=== PATIENT | female | born 1950 | race Caucasian/White ===

== ENCOUNTER 2020-05-09 05:57 | Day surgery (SDC) | payer MEDICARE, BC ==
[~2020-05-09] VITALS: Ht 165.1 cm; Wt 66.2 kg
--- NOTE | ~2020-05-09 | OP ---
PATIENT NAME: KEELY SOFIA MEDICAL RECORD: [id number] :48 LOCATION:D.OPS ADMISSION DATE: SURGEON: PHILLIP MUÑIZ MD DATE OF OPERATION: 05/09/2020 PREOPERATIVE DIAGNOSES: 1. Gallstones. 2. Atrial fibrillation. 3. Congestive heart failure. 4. Hypertension. POSTOPERATIVE DIAGNOSES: 1. Gallstones. 2. Atrial fibrillation. 3. Congestive heart failure. 4. Hypertension. PROCEDURE: Laparoscopic cholecystectomy. SURGEON: Phillip Muñiz MD REPORT OF PROCEDURE: The patient's abdomen was prepped and draped in sterile fashion. A cutdown was made on the superior aspect of the umbilicus, 0 Vicryls were placed in the fascia bilaterally and the fascia was incised with 15-blade. I bluntly entered the peritoneal cavity and placed a 12-mm Temitope port. Under direct visualization, a 5 mm trocar was placed in the epigastrium and 2 more 5-mm trocars were placed in the right subcostal region. The gallbladder was grasped and elevated. It was noted to be a large distended gallbladder with no signs of any acute inflammatory changes. There were multiple small stones present within it. We dissected out the cystic artery and cystic duct and we were able to clip these proximally and distally and ligated in standard fashion. The gallbladder was then taken off the liver bed using electrocautery and placed in the right upper quadrant. Any bleeding from the liver bed was then treated with electrocautery. We irrigated out the right upper quadrant and assured there was no sign of any bleeding or bile leakage. At this point, the ports and insufflation were then removed and the gallbladder was taken out through the umbilicus. The umbilical fascia was closed with interrupted 0 Vicryls times 3. The wounds were then irrigated out with normal saline and infused with 10 mL of 0.25% Marcaine with epinephrine. The skin incisions were all closed with subcutaneous 5-0 Monocryl and dressed appropriately. COMPLICATIONS: None. CONDITION: Stable. ANESTHESIA: General endotracheal and local. BLOOD LOSS: Minimal. TRANSINT:[id number] Voice Confirmation ID: [id number] DOCUMENT ID: [id number] OPERATIVE REPORT [id number] KEELY SOFIA PHILLIP MUÑIZ MD CC: NITA VENEGAS MD and WAYNE POPE [id number] DICTATION DATE: 05/09/20900 FREIGHT SOLICITOR: 05/09/20 1148 [facility] [address] [place] [id number]
[~2020-05-09 05:57] MED LIST: AMIODARONE HCL200 MG PO; DESIPRAMINE HCL50 MG PO; ESTRACE 0.5 MG0.5 MG PO; FUROSEMIDE20 MG PO; GLUCOPHAGE XR750 MG PO; METOPROLOL TART50 MG PO; NORVASC5 MG PO; PEPCID40 MG PO; POTASSIUM CL; PROMETRIUM200 MG PO; TRILEPTAL600 MG PO; XARELTO20 MG PO
[2020-05-09 06:27] LABS: BASOPHILS 0.5 % (0-2); EOSINOPHILS 3.6 % (0-7); HEMATOCRIT 42.6 % (36.0-48.0); HEMOGLOBIN 13.8 g/dL (12-16); IMMATURE GRANULOCYTES 0.2 % (0-5); LYMPHOCYTES 25.4 % (15-50); MCH 31.3 pg (26.0-34.0); MCHC 32.4 g/dL (31.0-37.0); MCV 96.6 fL (80.0-100.0); MEAN PLATELET VOLUME 9.7 fL (7.4-10.4); MONOCYTES 11.6 % (2-11); NEUTROPHILS 58.7 % (40-80); PLATELET COUNT 234 10x3/uL (130-400); RBC 4.41 10x6/uL (4.00-5.40); RDW 14.1 % (11.5-14.5); WBC 5.6 10x3/uL (4.8-10.8)
[2020-05-09 06:59] LABS: ANION GAP 8.4 mmol/L (8-16); CALCIUM 9.6 mg/dL (8.5-10.1); CREATININE - SERUM 1.1 mg/dL (0.6-1.3); POTASSIUM - SERUM 3.4 mmol/L (3.5-5.1)
[2020-05-09 07:03] VITALS: BP 183/71; Ht 165.1 cm; Wt 66.2 kg
[2020-05-09] MEDS ORDERED: HYDROCODON-ACE1 EA10 PO (08:55)
--- NOTE | 2020-05-09 10:51 | NUR ---
1045 NORCO 10MG PO GIVEN FOR PAIN/CRAMPING 12/04. LEMON ELEM SERVED
--- NOTE | 2020-05-09 16:10 | NUR ---
1545 SHERMAN DE LA PAZ SERVED.
== END 2020-05-09 17:45 | disposition home or self-care (01) ==
LOC: D.OPS 05:57
PROVIDERS: ATTEND Surgery
DX: K80.20 Calculus of gallbladder without cholecystitis without obstruction (principal); I48.20 Chronic atrial fibrillation, unspecified; I50.9 Heart failure, unspecified; I10 Essential (primary) hypertension